=== PATIENT | female | born 1950 | race Hispanic/Latino ===

== ENCOUNTER 2019-07-29 17:52 | Emergency (ER) | payer MEDICARE ==
[2019-07-29 19:29] VITALS: BP 111/52
--- NOTE | 2019-07-29 20:57 | Event Note ---
ED Screening Note ED Screening Note: cough that began a week ago white sputum +SOB no fever PMHx none no allergies to meds +smoker This initial assessment/diagnostic orders/clinical plan/treatment(s) is/are subject to change based on patients health status, clinical progression and re- assessment by fellow clinical providers in the ED. Further treatment and workup at subsequent clinical providers discretion. Patient/guardian urged not to elope from the ED as their condition may be serious if not clinically assessed and managed. Initial orders include: CXR, neb tx
[2019-07-29] MEDS ORDERED: ALBUTEROL 2.5 MG/3 ML NEBU IH ONE (20:58)
[2019-07-29] MEDS ORDERED: IPRATROPIUM 0.02% NEBU 2.5 ML IH ONE (20:58)
--- NOTE | 2019-07-29 22:07 | XRay Report ---
CHEST PA AND LATERAL VIEWS INDICATION: productive cough, SOB. COMPARISON: None. FINDINGS: Support devices: None. Heart: Within normal limits. Lungs/Pleura: No acute pulmonary or pleural findings. IMPRESSION: 1. No significant abnormality. Signer Name: Dank Villanueva MD Signed: 07/29/2019 10:02 PM Workstation Name: [id number]
--- NOTE | 2019-07-29 22:45 | Emergency Department Report ---
ED Shortness of Breath HPI - General Chief Complaint: Dyspnea/Respdistress Stated Complaint: SOB/COUGHING Time Seen by Provider: 07/29/19 20:54 Source: patient Mode of arrival: Ambulatory Limitations: No Limitations - History of Present Illness Initial Comments: 68 y/o female cough that began a week ago white sputum +SOB no fever PMHx none no allergies to meds +smoker Complaint: shortness of breath, cough Onset/Timin -: days(s) (3 day of sob, ), week(s) (cough) Consistency: intermittent Improves With: bronchodilators ED Review of Systems ROS: Stated complaint: SOB/COUGHING Other details as noted in HPI ED Past Medical Hx - Social History Smoking Status: Current Every Day Smoker Substance Use Type: None ED Physical Exam - General Limitations: No Limitations ED Course Vital Signs 07/29/19 07/29/19 07/29/19 19:25 20:57 23:16 Temperature 98.3 F Pulse Rate 109 H 102 H Pulse Rate [ 84 Anterior Throughout] Respiratory 22 18 Rate Respiratory 20 Rate [Anterior Throughout] Blood Pressure 111/52 O2 Sat by Pulse 92 96 Oximetry ED Medical Decision Making - Radiology Data Radiology results: report reviewed Patient: FOZIA GARCÍA MR#: [id number] : 1950 Acct:[id number] Age/Sex: 68 / F ADM Date: 07/29/19 Loc: ED Attending Dr: Ordering Physician: SHIRA CRUZ Date of Service: 07/29/19 Procedure(s): XR chest routine 2V Accession Number(s): [id number] cc: SHIRA CRUZ Fluoro Time In Minutes: CHEST PA AND LATERAL VIEWS INDICATION: productive cough, SOB. COMPARISON: None. FINDINGS: Support devices: None. Heart: Within normal limits. Lungs/Pleura: No acute pulmonary or pleural findings. IMPRESSION: 1. No significant abnormality. Signer Name: Dank Villanueva MD Signed: 07/29/2019 10:02 PM Workstation Name: [id number] Transcribed By: DRE Dictated By: Dank Villanueva MD Electronically Authenticated By: Dank Villanueva MD Signed Date/Time: 07/29/192201 DD/ 01 TD/TT: - Medical Decision Making 68 y/o female cough that began a week ago white sputum +SOB no fever PMHx none no allergies to meds +smoker Patient receiving a breathing treatment. Chest x-rays negative for any acute findings or abnormalities. Nurse reported that patient left against medical l findings and son refused to allow patient to sign paperwork. Critical care attestation.: If time is entered above; I have spent that time in minutes in the direct care of this critically ill patient, excluding procedure time. ED Disposition Clinical Impression: Cough Disposition: ELOPED Is pt being admited?: No Does the pt Need Aspirin: No Condition: Undetermined Referrals: PRIMARY CARE, [Primary Care Provider] - 3-5 Days
== END 2019-07-29 22:58 | disposition left against medical advice (07) ==
LOC: ED 17:52
DX: R05 Cough (principal); R06.02 Shortness of breath
CPT/HCPCS: 71046; 94644; 99282

== ENCOUNTER 2019-10-03 15:39 | Inpatient (IN) | payer MEDICARE ==
[2019-10-03] MEDS ORDERED: SODIUM CHLORIDE 0.9% 1000 ML 1,000 ML ONE (16:04)
[2019-10-03] MEDS ORDERED: SODIUM CHLORIDE 0.9% 1000 ML 1,000 ML IV ONE (16:07)
[2019-10-03] MEDS ORDERED: SODIUM CHLORIDE 0.9% 1000 ML IV SOLN IV ONE (16:22)
--- NOTE | 2019-10-03 16:54 | XRay Report ---
CHEST 1 VIEW INDICATION / CLINICAL INFORMATION: sob. COMPARISON: 07/29/2019 FINDINGS: SUPPORT DEVICES: None. HEART / MEDIASTINUM: No significant abnormality. LUNGS / PLEURA: No significant pulmonary or pleural abnormality. No pneumothorax. ADDITIONAL FINDINGS: No significant additional findings. IMPRESSION: 1. No acute findings. Signer Name: Cali Barnes MD Signed: 10/03/2019 4:49 PM Workstation Name: [id number]
[2019-10-03 17:13] LABS: Basophils # (Auto) 0.1 K/mm3 (0.0-0.1); Eosinophils # (Auto) 0.2 K/mm3 (0.0-0.4); Eosinophils % (Auto) 1.4 % (0.0-4.3); Lymphocytes # (Auto) 2.1 K/mm3 (1.2-5.4); Lymphocytes % (Auto) 17.8 % (13.4-35.0); Mean Corpuscular HGB Conc 29 % (30-34); Monocytes # (Auto) 0.8 K/mm3 (0.0-0.8); Monocytes % (Auto) 6.8 % (0.0-7.3); Platelet Count 340 K/mm3 (140-440); Red Blood Count 3.18 M/mm3 (3.65-5.03)
[2019-10-03 17:16] LABS: Hemoglobin 5.5 gm/dl (10.1-14.3)
[2019-10-03 17:17] LABS: Hematocrit 18.9 % (30.3-42.9); Mean Corpuscular Volume 59 fl (79-97); Red Cell Distribution Width 21.7 % (13.2-15.2)
[2019-10-03] MEDS ORDERED: SODIUM CHLORIDE 0.9% 500 ML 500 ML IV ONE ×2 (17:19→20:16)
[2019-10-03 17:28] LABS: INR 1.05 (0.87-1.13)
[2019-10-03 17:29] LABS: Partial Thromboplastin Time 26.6 Sec. (24.2-36.6)
[2019-10-03 17:39] LABS: Alanine Aminotransferase 9 units/L (7-56); Albumin 3.6 g/dL (3.9-5); BUN/Creatinine Ratio 17; Blood Urea Nitrogen 15 mg/dL (7-17); Calcium 8.9 mg/dL (8.4-10.2); Hemolysis Index 0
[2019-10-03] MEDS ORDERED: KETOROLAC 30 MG/1 ML INJ IV ONE (17:58)
--- NOTE | 2019-10-03 18:27 | Emergency Department Report ---
- General Chief complaint: Headache Stated complaint: HEADACHE Time Seen by Provider: 10/03/19 16:07 Source: patient, EMS Mode of arrival: Stretcher Limitations: No Limitations - History of Present Illness Initial comments: 68-year-old female with a right-sided breast mass x7 to 8 years and diagnosis of pneumonia 1 month ago presents to the hospital complaining of generalized wea kness, shortness of breath, lightheadedness, headache, and right arm pain x1 day. Patient did have nausea and vomiting prior to arrival. Patient states she has a chronic cough that is unchanged without reports of fever, diarrhea, melena, or hematochezia. Patient denies recent travel, history of PE/DVT. Patient has had a right breast/chest wall mass for 7 to 8 years and has not followed up with a physician regarding this mass. Patient presents hypotensive. - Related Data Home Medications Medication Instructions Recorded Confirmed Last Taken No Known Home Medications [No 10/03/19 10/03/19 Unknown Reported Home Medications] Allergies Allergy/AdvReac Type Severity Reaction Status Date / Time No Known Allergies Allergy Verified 10/03/19 20:20 ED Review of Systems ROS: Stated complaint: HEADACHE Other details as noted in HPI Comment: All other systems reviewed and negative ED Past Medical Hx - Past Medical History Previous Medical History?: Yes Additional medical history: pneumonia - Surgical History Past Surgical History?: No - Social History Smoking Status: Current Every Day Smoker Substance Use Type: Alcohol - Medications Home Medications: Home Medications Medication Instructions Recorded Confirmed Last Taken Type No Known Home Medications [No 10/03/19 10/03/19 Unknown History Reported Home Medications] ED Physical Exam - General Limitations: No Limitations - Other Other exam information: General: No acute distress Head: Atraumatic Eyes: normal appearance, pale conjunctiva ENT: Moist mucous membranes Neck: Normal appearance, no midline tenderness Chest: Clear to auscultation bilaterally. She has a right chest wall mass with a fluctuant area to the right and superior to this chest wall mass. Patient no longer has a significant amount of right breast tissue. CV: Regular rate and rhythm Abdomen: Soft, normal bowel sounds, nontender, nondistended, no rebound or guarding Rectal: Guaiac negative brown stool Back: Normal inspection Extremity: Normal inspection, full range of motion, no swelling, warmth, or erythema to extremities full range of motion of right upper extremity, no calf tenderness or leg edema Neuro: Alert O x 3, no facial asymmetry, speech clear, no gross motor sensory deficit Psych: Appropriate behavior Skin: pale skin ED Course Vital Signs 10/03/19 10/03/19 10/03/19 15:55 16:10 16:16 Temperature 97.5 F L Pulse Rate 80 76 77 Respiratory 22 19 25 H Rate Blood Pressure 71/29 75/38 Blood Pressure [Left] O2 Sat by Pulse 95 100 97 Oximetry 10/03/19 10/03/19 10/03/19 16:30 16:45 17:00 Temperature Pulse Rate 78 77 79 Respiratory 18 20 20 Rate Blood Pressure 80/29 89/39 82/35 Blood Pressure [Left] O2 Sat by Pulse 98 95 99 Oximetry 10/03/19 10/03/19 10/03/19 17:15 17:30 17:45 Temperature Pulse Rate 84 81 87 Respiratory 17 19 27 H Rate Blood Pressure 92/40 91/36 98/38 Blood Pressure [Left] O2 Sat by Pulse 99 97 98 Oximetry 10/03/19 10/03/19 10/03/19 18:24 18:26 18:30 Temperature Pulse Rate 91 H 90 Respiratory 25 H 18 22 Rate Blood Pressure 135/54 Blood Pressure [Left] O2 Sat by Pulse 99 99 Oximetry 10/03/19 10/03/19 10/03/19 18:46 18:48 19:03 Temperature 97.7 F 97.4 F L Pulse Rate 95 H 93 H 93 H Respiratory 22 23 21 Rate Blood Pressure 135/54 135/54 143/65 Blood Pressure [Left] O2 Sat by Pulse 98 99 100 Oximetry 10/03/19 10/03/19 19:20 19:33 Temperature 97.6 F 97.6 F Pulse Rate 21 L 99 H Respiratory 21 21 Rate Blood Pressure 113/68 Blood Pressure 113/65 [Left] O2 Sat by Pulse 100 100 Oximetry ED Medical Decision Making - Lab Data Result diagrams: 10/03/19 16:57 10/03/19 16:57 Lab Results 10/03/19 10/03/19 10/03/19 Range/Units 16:55 16:57 16:57 WBC 12.0 H (4.5-11.0) K/mm3 RBC 3.18 L (3.65-5.03) M/mm3 Hgb 5.5 L* (10.1-14.3) gm/dl Hct 18.9 L* (30.3-42.9) % MCV 59 L (79-97) fl MCH 17 L (28-32) pg MCHC 29 L (30-34) % RDW 21.7 H (13.2-15.2) % Plt Count 340 (140-440) K/mm3 Lymph % (Auto) 17.8 (13.4-35.0) % Arthur % (Auto) 6.8 (0.0-7.3) % Eos % (Auto) 1.4 (0.0-4.3) % Baso % (Auto) 1.0 (0.0-1.8) % Lymph # 2.1 (1.2-5.4) K/mm3 Arthur # 0.8 (0.0-0.8) K/mm3 Eos # 0.2 (0.0-0.4) K/mm3 Baso # 0.1 (0.0-0.1) K/mm3 Seg Neutrophils % 73.0 H (40.0-70.0) % Seg Neutrophils # 8.8 H (1.8-7.7) K/mm3 PT 13.8 (12.2-14.9) Sec. INR 1.05 (0.87-1.13) APTT 26.6 (24.2-36.6) Sec. VBG pH (7.320-7.420) Sodium (137-145) mmol/L Potassium (3.6-5.0) mmol/L Chloride (98-107) mmol/L Carbon Dioxide (22-30) mmol/L Anion Gap mmol/L BUN (7-17) mg/dL Creatinine (0.7-1.2) mg/dL Estimated GFR ml/min BUN/Creatinine Ratio % Glucose (65-100) mg/dL Lactic Acid (0.7-2.0) mmol/L Calcium (8.4-10.2) mg/dL Total Bilirubin (0.1-1.2) mg/dL AST (5-40) units/L ALT (7-56) units/L Alkaline Phosphatase (35-129) units/L Troponin T (0.00-0.029) ng/mL Total Protein (6.3-8.2) g/dL Albumin (3.9-5) g/dL Albumin/Globulin Ratio % Blood Type O NEGATIVE Antibody Screen Negative Crossmatch See Detail 10/03/19 10/03/19 10/03/19 Range/Units 16:57 16:57 16:57 WBC (4.5-11.0) K/mm3 RBC (3.65-5.03) M/mm3 Hgb (10.1-14.3) gm/dl Hct (30.3-42.9) % MCV (79-97) fl MCH (28-32) pg MCHC (30-34) % RDW (13.2-15.2) % Plt Count (140-440) K/mm3 Lymph % (Auto) (13.4-35.0) % Arthur % (Auto) (0.0-7.3) % Eos % (Auto) (0.0-4.3) % Baso % (Auto) (0.0-1.8) % Lymph # (1.2-5.4) K/mm3 Arthur # (0.0-0.8) K/mm3 Eos # (0.0-0.4) K/mm3 Baso # (0.0-0.1) K/mm3 Seg Neutrophils % (40.0-70.0) % Seg Neutrophils # (1.8-7.7) K/mm3 PT (12.2-14.9) Sec. INR (0.87-1.13) APTT (24.2-36.6) Sec. VBG pH 7.307 L (7.320-7.420) Sodium 138 (137-145) mmol/L Potassium 5.0 (3.6-5.0) mmol/L Chloride 104.6 (98-107) mmol/L Carbon Dioxide 18 L (22-30) mmol/L Anion Gap 20 mmol/L BUN 15 (7-17) mg/dL Creatinine 0.9 (0.7-1.2) mg/dL Estimated GFR > 60 ml/min BUN/Creatinine Ratio 17 % Glucose 217 H (65-100) mg/dL Lactic Acid 2.80 H* (0.7-2.0) mmol/L Calcium 8.9 (8.4-10.2) mg/dL Total Bilirubin 0.20 (0.1-1.2) mg/dL AST 15 (5-40) units/L ALT 9 (7-56) units/L Alkaline Phosphatase 101 (35-129) units/L Troponin T < 0.010 (0.00-0.029) ng/mL Total Protein 6.2 L (6.3-8.2) g/dL Albumin 3.6 L (3.9-5) g/dL Albumin/Globulin Ratio 1.4 % Blood Type Antibody Screen Crossmatch - EKG Data -: EKG Interpreted by Mt EKG shows normal: sinus rhythm - Radiology Data Radiology results: report reviewed CHEST 1 VIEW INDICATION / CLINICAL INFORMATION: sob. COMPARISON: 07/29/2019 FINDINGS: SUPPORT DEVICES: None. HEART / MEDIASTINUM: No significant abnormality. LUNGS / PLEURA: No significant pulmonary or pleural abnormality. No pneumothorax. ADDITIONAL FINDINGS: No significant additional findings. IMPRESSION: 1. No acute findings. CT angio chest, CT abdomen pelvis w con INDICATION / CLINICAL INFORMATION: Shortness of breath, breast mass,. TECHNIQUE: Axial CT images were obtained after injection of IV contrast using CTA protocol. 3 plane MIP / 3D recons tructions were produced. All CT scans at this location are performed using CT dose reduction for ALARA by means of automated exposure control. COMPARISON: None available. CTA CHEST: The lungs contain no mass, infiltrate or pleural fluid. Basilar atelectasis is mild. No mediastinal mass or adenopathy. A spiculated mass at the right breast measures 5.3 x 2.7 cm (series 2, image 2:15). There is extension to the skin surface and associated retraction of breast. CT ABDOMEN: The parenchymal organs are unremarkable in appearance. Negative for abdominal mass, adenopathy or inflammation. The aorta contains moderate atherosclerotic calcification. The bowel is not dilated or thickened. CT PELVIS: Status post previous hysterectomy. The right ovary contains a probable small cyst measuring 2.4 cm. A high density lesion at the left ovary measuring 4.1 cm is likely a hemorrhagic cyst. Negative for pelvic mass or adenopathy. Evaluation of the bones demonstrates mixed lytic/sclerotic change at the L4 vertebral body and left iliac wing. IMPRESSION: 1. Infiltrating right breast carcinoma with bony metastatic disease to L4 and the left iliac wing. 2. Suspect small physiologic cyst right ovary and larger hemorrhagic cyst left ovary. CT head/brain wo con INDICATION / CLINICAL INFORMATION: 68 years Female; forrester, hypotension, breast mass. TECHNIQUE: Routine CT head without contrast. All CT scans at this location are performed using CT dose reduction for ALARA by means of automated exposure control. COMPARISON: None. FINDINGS: BRAIN / INTRACRANIAL CONTENTS: There appears be mild cerebral white matter disease most consistent with age-appropriate microvascular angiopathy at. There is also mild cerebral atrophy. The ventricular system is correspondingly appropriate in size and configuration. There is no clear CT evidence of acute intracranial hemorrhage or significant mass effect. ORBITS: No significant abnormality of visualized orbits. SINUSES / MASTOIDS: No significant abnormality the visualized paranasal sinuses or mastoid air cells. CRANIOCERVICAL JUNCTION: No significant abnormality. ADDITIONAL FINDINGS: None. IMPRESSION: 1. This mild age-appropriate microvascular angiopathy and cerebral atrophy without CT evidence of acute intracranial process. - Medical Decision Making Patient presented to the ER with generalized weakness, hypotension, and pale appearance. Labs revealed significant microcytic anemia. Cause likely secondary to possible iron deficiency as well as anemia of chronic disease. Patient has an infiltrating right breast mass which is likely infiltrating carcinoma. This has been ongoing for 7 to 8 years without treatment or medical care. Patient has signs of metastasis as per CT chest abdomen and pelvis. No signs of pulmonary embolus. CT head unremarkable. Patient's blood pressure im proved with IV fluids. 2 units of PRBCs were initiated in the ED. Patient provided Toradol for bone pain. Mild lactic acidosis noted which is likely secondary to significant anemia/hypoperfusion without any signs or source of infection at this time. Urine collection is pending at time of disposition to rule out UTI and complete septic work-up. Blood cultures are pending. UA reviewed no infection + inc specific gravity suggesting dehydration - Differential Diagnosis Sepsis, anemia, cancer, PE Critical Care Time: Yes Critical care time in (mins) excluding proc time.: 35 Critical care attestation.: If time is entered above; I have spent that time in minutes in the direct care of this critically ill patient, excluding procedure time. ED Disposition Clinical Impression: Symptomatic anemia, Breast cancer, right, Metastatic breast cancer, Hypo tension, Microcytic anemia, Bone pain Disposition: OP ADMIT IP TO THIS HOSP Is pt being admited?: Yes Condition: Stable Time of Disposition: 19:35 (Dr styles/hosp midlevel to admit)
--- NOTE | 2019-10-03 18:41 | Cat Scan Report ---
CT head/brain wo con INDICATION / CLINICAL INFORMATION: 68 years Female; forrester, hypotension, breast mass. TECHNIQUE: Routine CT head without contrast. All CT scans at this location are performed using CT dos e reduction for ALARA by means of automated exposure control. COMPARISON: None. FINDINGS: BRAIN / INTRACRANIAL CONTENTS: There appears be mild cerebral white matter disease most consistent wi th age-appropriate microvascular angiopathy at. There is also mild cerebral atrophy. The ventricular system is correspondingly appropriate in size and configuration. There is no clear CT evidence of acu te intracranial hemorrhage or significant mass effect. ORBITS: No significant abnormality of visualized orbits. SINUSES / MASTOIDS: No significant abnormality the visualized paranasal sinuses or mastoid air cells. CRANIOCERVICAL JUNCTION: No significant abnormality. ADDITIONAL FINDINGS: None. IMPRESSION: 1. This mild age-appropriate microvascular angiopathy and cerebral atrophy without CT evidence of acu te intracranial process. Signer Name: Cisco Vidales MD Signed: 10/03/2019 6:36 PM Workstation Name: [id number]
--- NOTE | 2019-10-03 19:13 | Cat Scan Report ---
CT angio chest, CT abdomen pelvis w con INDICATION / CLINICAL INFORMATION: Shortness of breath, breast mass,. TECHNIQUE: Axial CT images were obtained after injection of IV contrast using CTA protocol. 3 plane MIP / 3D rec onstructions were produced. All CT scans at this location are performed using CT dose reduction for A KEENA by means of automated exposure control. COMPARISON: None available. CTA CHEST: The lungs contain no mass, infiltrate or pleural fluid. Basilar atelectasis is mild. No mediastinal mass or adenopathy. A spiculated mass at the right breast measures 5.3 x 2.7 cm (serie s 2, image 2:15). There is extension to the skin surface and associated retraction of breast. CT ABDOMEN: The parenchymal organs are unremarkable in appearance. Negative for abdominal mass, adeno cecy or inflammation. The aorta contains moderate atherosclerotic calcification. The bowel is not dilated or thickened. CT PELVIS: Status post previous hysterectomy. The right ovary contains a probable small cyst measurin g 2.4 cm. A high density lesion at the left ovary measuring 4.1 cm is likely a hemorrhagic cyst. Nega tive for pelvic mass or adenopathy. Evaluation of the bones demonstrates mixed lytic/sclerotic change at the L4 vertebral body and left i liac wing. IMPRESSION: 1. Infiltrating right breast carcinoma with bony metastatic disease to L4 and the left iliac wing. 2. Suspect small physiologic cyst right ovary and larger hemorrhagic cyst left ovary. Signer Name: Stanislaw Brewster MD Signed: 10/03/2019 7:08 PM Workstation Name: [id number]
--- NOTE | 2019-10-03 20:03 | History and Physical Report ---
History of Present Illness Date of examination: 10/03/19 Date of admission: 10/03/2019 Chief complaint: Weakness History of present illness: Patient is a 68-year-old female with history of breast and uterine cancer who presents to ER with complaints of right arm pain, weakness and dizziness since yesterday. Patient reports starting her shift this morning and after waiting 2 tables her right arm pain remained constant with worsening symptoms throughout the day. She was transported to [facility] via EMS, seen and evaluated in the ED and found to have a hemoglobin of 5.6, hypotensive and right breast carcinoma with bony metastatic disease. Patient admitted for further evaluation. No reports of chest pain, palpitation, trauma, falls, vertigo, seizure activity, or recent ill contacts. Past History Past Medical History: other (As noted in HPI) Past Surgical History: hysterectomy Social history: smoking (x 50 years) Family history: cancer, hypertension Medications and Allergies Allergies Allergy/AdvReac Type Severity Reaction Status Date / Time No Known Allergies Allergy Verified 10/03/19 20:20 Home Medications Medication Instructions Recorded Confirmed Last Taken Type No Known Home Medications [No 10/03/19 10/03/19 Unknown History Reported Home Medications] Review of Systems All systems: negative Constitutional: fatigue, weakness Respiratory: cough Gastrointestinal: no vomiting, no diarrhea, no hematemesis, no coffee ground emesis Neurological: weakness, no change in mentation Exam - Physical Exam Narrative exam: - Physical Exam Narrative exam: General appearance: Present: No distress noted - EENT Eyes: Present: PERRL ENT: hearing intact, clear oral mucosa - Neck Neck: Present: supple, normal ROM - Respiratory Respiratory effort: normal Respiratory: bilateral: Clear to auscultation - Cardiovascular Heart rate:96 Heart Sounds: Present: S1 & S2. Absent: rub, click - Extremities Extremities: pulses symmetrical, No edema Peripheral Pulses: within normal limits - Abdominal General gastrointestinal: Present: , non-distended, normal bowel sounds genitourinary: Present: normal - Integumentary Integumentary: Present: clear, warm, dry - Musculoskeletal Musculoskeletal: strength equal bilaterally - Psychiatric Psychiatric: appropriate mood/affect, intact judgment & insight - Neurologic Neurologic: CNII-XII intact, moves all extremities - Constitutional Vitals: Temp Pulse Resp BP Pulse Ox 97.6 F 21 L 21 113/65 100 10/03/19 19:20 10/03/19 19:20 10/03/19 19:20 10/03/19 19:20 10/03/19 19:20 Results - Labs CBC & Chem 7: 10/04/19 04:44 10/04/19 04:44 Labs: Laboratory Last Values WBC 12.0 K/mm3 (4.5-11.0) H 10/03/19 16:57 RBC 3.18 M/mm3 (3.65-5.03) L 10/03/19 16:57 Hgb 5.5 gm/dl (10.1-14.3) L* 10/03/19 16:57 Hct 18.9 % (30.3-42.9) L* 10/03/19 16:57 MCV 59 fl (79-97) L 10/03/19 16:57 MCH 17 pg (28-32) L 10/03/19 16:57 MCHC 29 % (30-34) L 10/03/19 16:57 RDW 21.7 % (13.2-15.2) H 10/03/19 16:57 Plt Count 340 K/mm3 (140-440) 10/03/19 16:57 Lymph % (Auto) 17.8 % (13.4-35.0) 10/03/19 16:57 [place] % (Auto) 6.8 % (0.0-7.3) 10/03/19 16:57 Eos % (Auto) 1.4 % (0.0-4.3) 10/03/19 16:57 Baso % (Auto) 1.0 % (0.0-1.8) 10/03/19 16:57 Lymph # 2.1 K/mm3 (1.2-5.4) 10/03/19 16:57 [place] # 0.8 K/mm3 (0.0-0.8) 10/03/19 16:57 Eos # 0.2 K/mm3 (0.0-0.4) 10/03/19 16:57 Baso # 0.1 K/mm3 (0.0-0.1) 10/03/19 16:57 Seg Neutrophils % 73.0 % (40.0-70.0) H 10/03/19 16:57 Seg Neutrophils # 8.8 K/mm3 (1.8-7.7) H 10/03/19 16:57 PT 13.8 Sec. (12.2-14.9) 10/03/19 16:57 INR 1.05 (0.87-1.13) 10/03/19 16:57 APTT 26.6 Sec. (24.2-36.6) 10/03/19 16:57 VBG pH 7.307 (7.320-7.420) L 10/03/19 16:57 Sodium 138 mmol/L (137-145) 10/03/19 16:57 Potassium 5.0 mmol/L (3.6-5.0) 10/03/19 16:57 Chloride 104.6 mmol/L (98-107) 10/03/19 16:57 Carbon Dioxide 18 mmol/L (22-30) L 10/03/19 16:57 Anion Gap 20 mmol/L 10/03/19 16:57 BUN 15 mg/dL (7-17) 10/03/19 16:57 Creatinine 0.9 mg/dL (0.7-1.2) 10/03/19 16:57 Estimated GFR > 60 ml/min 10/03/19 16:57 BUN/Creatinine Ratio 17 % 10/03/19 16:57 Glucose 217 mg/dL (65-100) H 10/03/19 16:57 Lactic Acid 2.80 mmol/L (0.7-2.0) H* 10/03/19 16:57 Calcium 8.9 mg/dL (8.4-10.2) 10/03/19 16:57 Total Bilirubin 0.20 mg/dL (0.1-1.2) 10/03/19 16:57 AST 15 units/L (5-40) 10/03/19 16:57 ALT 9 units/L (7-56) 10/03/19 16:57 Alkaline Phosphatase 101 units/L (35-129) 10/03/19 16:57 Troponin T < 0.010 ng/mL (0.00-0.029) 10/03/19 16:57 Total Protein 6.2 g/dL (6.3-8.2) L 10/03/19 16:57 Albumin 3.6 g/dL (3.9-5) L 10/03/19 16:57 Albumin/Globulin Ratio 1.4 % 10/03/19 16:57 Blood Type O NEGATIVE 10/03/19 16:55 Antibody Screen Negative 10/03/19 16:55 Crossmatch See Detail 10/03/19 16:55 - Imaging and Cardiology EKG: report reviewed (Sinus rhythm) Chest x-ray: report reviewed CT scan - abdomen: report reviewed CT Scan - head: report reviewed Imaging and Cardiology: CHEST 1 VIEW INDICATION / CLINICAL INFORMATION: sob. COMPARISON: 07/29/2019 FINDINGS: SUPPORT DEVICES: None. HEART / MEDIASTINUM: No significant abnormality. LUNGS / PLEURA: No significant pulmonary or pleural abnormality. No pneumothorax. ADDITIONAL FINDINGS: No significant additional findings. IMPRESSION: 1. No acute findings. CT ABDOMEN: The parenchymal organs are unremarkable in appearance. Negative for abdominal mass, adenopathy or inflammation. The aorta contains moderate atherosclerotic calcification. The bowel is not dilated or thickened. CT PELVIS: Status post previous hysterectomy. The right ovary contains a probable small cyst measuring 2.4 cm. A high density lesion at the left ovary measuring 4.1 cm is likely a hemorrhagic cyst. Negative for pelvic mass or adenopathy. Evaluation of the bones demonstrates mixed lytic/sclerotic change at the L4 vertebral body and left iliac wing. IMPRESSION: 1. Infiltrating right breast carcinoma with bony metastatic disease to L4 and the left iliac wing. 2. Suspect small physiologic cyst right ovary and larger hemorrhagic cyst left ovary CT head/brain wo con INDICATION / CLINICAL INFORMATION: 68 years Female; forrester, hypotension, breast mass. TECHNIQUE: Routine CT head without contrast. All CT scans at this location are performed using CT dose reduction for ALARA by means of automated exposure control. COMPARISON: None. FINDINGS: BRAIN / INTRACRANIAL CONTENTS: There appears be mild cerebral white matter disease most consistent with age-appropriate microvascular angiopathy at. There is also mild cerebral atrophy. The ventricular system is correspondingly appropriate in size and configuration. There is no clear CT evidence of acute intracranial hemorrhage or significant mass effect. ORBITS: No significant abnormality of visualized orbits. SINUSES / MASTOIDS: No significant abnormality the visualized paranasal sinuses or mastoid air cells. CRANIOCERVICAL JUNCTION: No significant abnormality. ADDITIONAL FINDINGS: None. IMPRESSION: 1. This mild age-appropriate microvascular angiopathy and cerebral atrophy without CT evidence of acute intracranial process Assessment and Plan Assessment and plan: Symptomatic anemia -moderate anemia -Hb: 5.6g/dl -type and cross, transfuse 3 units of PRBC -Closely monitor H&H, - transfuse additional units as needed SIRS -CXR unremarkable -Tachycardic with heart rate 95 bpm -Respiratory rate >20 -Blood cultures pending -Follow up on labs Breast cancer -Ct Metastatic disease -consulted onc -Continue supportive care -Medical noncompliance Patient strongly advised complaint follow-up visits Verbalized understanding DVT prophylaxis -SCDs bilateral extremities Advance Directives: No VTE prophylaxis?: Mechanical Plan of care discussed with patient/family: Yes
[2019-10-03] MEDS ORDERED: ONDANSETRON 4 MG/2 ML INJ IV PRN (20:11)
[2019-10-03] MEDS ORDERED: ACETAMINOPHEN 325 MG TAB PO PRN (20:11)
[2019-10-03 20:33] LABS: Bacteria,Urine 1+ /HPF (Negative); Bilirubin,Urine NEG (Negative); Blood,Urine NEG (Negative); Color,Urine Straw (Yellow); Mucus,Urine FEW /HPF; Protein,Urine <15 mg/dL mg/dL (Negative); Urobilinogen,Urine < 2.0 mg/dL (<2.0)
[2019-10-03] MEDS: PANTOPRAZOLE 40 MG INJ IV SCH (21:52)
[2019-10-03] MEDS ORDERED: PANTOPRAZOLE 40 MG INJ IV ONE (21:52)
[2019-10-03] MEDS ORDERED: FAMOTIDINE 20 MG/2 ML INJ IV SCH (22:00)
[2019-10-03] MEDS ORDERED: SODIUM CHLORIDE 0.9% 500 ML 500 ML ONE (23:47)
[2019-10-04] MEDS ORDERED: diphenhydrAMINE 50 MG/ML VIAL IV ONE (03:23)
--- NOTE | 2019-10-04 03:55 | XRay Report ---
CHEST 1 VIEW INDICATION / CLINICAL INFORMATION: blood reaction, sob. COMPARISON: 10/03/2019 FINDINGS: SUPPORT DEVICES: None. HEART / MEDIASTINUM: No significant abnormality. LUNGS / PLEURA: There has been significant interval worsening with increasing interstitial markings w ith [place] B lines lines indicating developing pulmonary edema. There is alveolar consolidation at th e left base as well. No significant effusions. No pneumothorax. ADDITIONAL FINDINGS: No significant additional findings. IMPRESSION: 1 Worsening chest Signer Name: Casimiro Landry MD Signed: 10/04/2019 3:50 AM Workstation Name: [id number]
[2019-10-04 04:15] LABS: Bilirubin,Urine NEG (Negative); Blood,Urine SM (Negative); Color,Urine Yellow (Yellow); Mucus,Urine FEW /HPF; Protein,Urine <15 mg/dL mg/dL (Negative); Urobilinogen,Urine < 2.0 mg/dL (<2.0)
[2019-10-04] MEDS ORDERED: ALBUTEROL 2.5 MG/3 ML NEBU IH PRN (04:18)
[2019-10-04 05:22] LABS: Mean Corpuscular HGB Conc 28 % (30-34); Platelet Count 378 K/mm3 (140-440)
[2019-10-04 05:27] LABS: Hematocrit 28.8 % (30.3-42.9); Hemoglobin 8.2 gm/dl (10.1-14.3); Mean Corpuscular Volume 63 fl (79-97); Red Cell Distribution Width 23.2 % (13.2-15.2)
[2019-10-04 05:41] LABS: BUN/Creatinine Ratio 19; Blood Urea Nitrogen 13 mg/dL (7-17); Calcium 8.9 mg/dL (8.4-10.2); Hemolysis Index 2
[2019-10-04 06:38] LABS: Anisocytosis 2+; Hypochromasia 3+; Total Cells Counted 100
[2019-10-04 06:39] LABS: Burr Cells Rare
[2019-10-04 06:40] LABS: Platelet Estimate Consistent w Auto; Tear Drop Cells Rare
--- NOTE | 2019-10-04 07:30 | Hem/Onc Consultation ---
History of Present Illness - Reason for Consult Consult date: 10/04/19 breast cancer Requesting physician: JERI SWARTZ - History of Present Illness 68-year-old female with history of uterine cancer ( it appears long time ago she had uterine ca and now has rt breast mass not diagnosed but suspected as cancer) who presented to ER with complaints of right arm pain, weakness and dizziness since yesterday. Patient reports right arm pain remained constant with worsening symptoms throughout the day. She was transported to [facility] via EMS, seen and evaluated in the ED and In ED was found to have a hemoglobin of 5.6, hypotensive and right breast carcinoma with bony metastatic disease. Patient admitted for further evaluation. No reports of chest pain, palpitation, trauma, falls, vertigo, seizure activity, or recent ill contacts. CT ABDOMEN: The parenchymal organs are unremarkable in appearance. Negative for abdominal mass, adenopathy or inflammation. The aorta contains moderate atherosclerotic calcification. The bowel is not dilated or thickened. CT PELVIS: Status post previous hysterectomy. The right ovary contains a probable small cyst measuring 2.4 cm. A high density lesion at the left ovary measuring 4.1 cm is likely a hemorrhagic cyst. Negative for pelvic mass or adenopathy. Evaluation of the bones demonstrates mixed lytic/sclerotic change at the L4 vertebral body and left iliac wing. IMPRESSION: 1. Infiltrating right breast carcinoma with bony metastatic disease to L4 and the left iliac wing. 2. Suspect small physiologic cyst right ovary and larger hemorrhagic cyst left ovary CT head/brain wo con INDICATION / CLINICAL INFORMATION: 68 years Female; cano, hypotension, breast mass. TECHNIQUE: Routine CT head without contrast. All CT scans at this location are performed using CT dose reduction for ALARA by means of automated exposure control. COMPARISON: None. FINDINGS: BRAIN / INTRACRANIAL CONTENTS: There appears be mild cerebral white matter disease most consistent with age-appropriate microvascular angiopathy at. There is also mild cerebral atrophy. The ventricular system is correspondingly appropriate in size and configuration. There is no clear CT evidence of acute intracranial hemorrhage or significant mass effect. ORBITS: No significant abnormality of visualized orbits. SINUSES / MASTOIDS: No significant abnormality the visualized paranasal sinuses or mastoid air cells. CRANIOCERVICAL JUNCTION: No significant abnormality. ADDITIONAL FINDINGS: None. IMPRESSION: 1. This mild age-appropriate microvascular angiopathy and cerebral atrophy without CT evidence of acute intracranial process pt got PRBC Past History Past Medical History: cancer (uterine cancer in past - hysterctomy), other (As noted in HPI) Past Surgical History: hysterectomy Social history: smoking (x 50 years) Family history: cancer, hypertension Medications and Allergies Allergies Allergy/AdvReac Type Severity Reaction Status Date / Time No Known Allergies Allergy Verified 10/03/19 20:20 Home Medications Medication Instructions Recorded Confirmed Last Taken Type No Known Home Medications [No 10/03/19 10/03/19 Unknown History Reported Home Medications] Active Meds: Active Medications Acetaminophen (Tylenol) 650 mg PO Q4H PRN PRN Reason: Pain MILD(1-3)/Fever >100.5/CANO Albuterol (Proventil) 2.5 mg IH Q6HRT PRN PRN Reason: Shortness Of Breath Last Admin: 10/04/19 04:32 Dose: 2.5 mg Documented by: Famotidine (Pepcid) 20 mg IV BID [facility] Last Admin: 10/03/19 21:59 Dose: Not Given Documented by: Ondansetron HCl (Zofran) 4 mg IV Q8H PRN PRN Reason: Nausea And Vomiting Oxycodone/Acetaminophen (Percocet 5/325) 1 tab PO Q6H PRN PRN Reason: Pain, Moderate (4-6) Pantoprazole Sodium (Protonix) 40 mg IV BID [facility] Last Admin: 10/03/19 21:52 Dose: 40 mg Documented by: Sodium Chloride (Sodium Chloride Flush Syringe 10 Ml) 10 ml IV BID [facility] Last Admin: 10/03/19 21:59 Dose: 10 ml Documented by: Sodium Chloride (Sodium Chloride Flush Syringe 10 Ml) 10 ml IV PRN PRN PRN Reason: LINE FLUSH Review of Systems Constitutional: weakness Ears, nose, mouth and throat: no epistaxis Breasts: mass (rt breast) Cardiovascular: no dyspnea on exertion Respiratory: no cough Gastrointestinal: no abdominal pain Rectal: no bleeding Musculoskeletal: other (rt arm pain) Integumentary: lesions (rt breast skin changes) Neurological: other (has difficulty recollecting the name of dr ) Endocrine: no cold intolerance, no heat intolerance Hematologic/Lymphatic: no easy bruising Exam - Exam Narrative Exam: General appearance: Present: No distress noted - EENT Eyes: Present: PERRL ENT: hearing intact, clear oral mucosa - Neck Neck: Present: supple, normal ROM - Respiratory Respiratory effort: normal Respiratory: bilateral: Clear to auscultation - Cardiovascular Heart Sounds: Present: S1 & S2. Absent: rub, click - Extremities Extremities: pulses symmetrical, No edema Peripheral Pulses: within normal limits - Abdominal General gastrointestinal: Present: , non-distended, normal bowel sounds genitourinary: Present: normal - Integumentary Integumentary: rt breast lesions - Musculoskeletal Musculoskeletal: strength equal bilaterally - Psychiatric Psychiatric: appropriate mood/affect, intact judgment & insight - Neurologic Neurologic: CNII-XII intact, moves all extremities - Constitutional Vitals: Last Vital Signs Temp 97.5 F L 10/04/19 02:38 Pulse 120 H 10/04/19 04:32 Resp 20 10/04/19 04:32 BP 195/87 10/04/19 02:38 Pulse Ox 93 10/04/19 04:33 Results - Labs lab Results: Laboratory Results - last 24 hr 10/03/19 10/03/19 10/03/19 16:55 16:57 16:57 WBC 12.0 H RBC 3.18 L Hgb 5.5 L* Hct 18.9 L* MCV 59 L MCH 17 L MCHC 29 L RDW 21.7 H Plt Count 340 Lymph % (Auto) 17.8 [place] % (Auto) 6.8 Eos % (Auto) 1.4 Baso % (Auto) 1.0 Lymph # 2.1 [place] # 0.8 Eos # 0.2 Baso # 0.1 Add Manual Diff Total Counted Seg Neutrophils % 73.0 H Seg Neuts % (Manual) Band Neutrophils % Lymphocytes % (Manual) Reactive Lymphs % (Man) Monocytes % (Manual) Eosinophils % (Manual) Basophils % (Manual) Metamyelocytes % Myelocytes % Promyelocytes % Blast Cells % Nucleated RBC % Seg Neutrophils # 8.8 H Seg Neutrophils # Man Band Neutrophils # Lymphocytes # (Manual) Abs React Lymphs (Man) Monocytes # (Manual) Eosinophils # (Manual) Basophils # (Manual) Metamyelocytes # Myelocytes # Promyelocytes # Blast Cells # WBC Morphology Hypersegmented Neuts Hyposegmented Neuts Hypogranular Neuts Smudge Cells Toxic Granulation Toxic Vacuolation Dohle Bodies Pelger-Huet Anomaly Paula Rods Platelet Estimate Clumped Platelets Plt Clumps, EDTA Large Platelets Giant Platelets Platelet Satelliting Plt Morphology Comment RBC Morphology Dimorphic RBCs Polychromasia Hypochromasia Poikilocytosis Anisocytosis Microcytosis Macrocytosis Spherocytes Pappenheimer Bodies Sickle Cells Target Cells Tear Drop Cells Ovalocytes Helmet Cells [place] Pos Bodies [place] Rings Isauro Cells Bite Cells Crenated Cell Elliptocytes Acanthocytes (Spur) Rouleaux Hemoglobin C Crystals Schistocytes Malaria parasites Elvis Bodies Hem Pathologist Commnt PT 13.8 INR 1.05 APTT 26.6 VBG pH Sodium Potassium Chloride Carbon Dioxide Anion Gap BUN Creatinine Estimated GFR BUN/Creatinine Ratio Glucose Lactic Acid Calcium Total Bilirubin AST ALT Alkaline Phosphatase Troponin T Total Protein Albumin Albumin/Globulin Ratio Urine Color Urine Turbidity Urine pH Ur Specific [place] Urine Protein Urine Glucose (UA) Urine Ketones Urine Blood Urine Nitrite Urine Bilirubin Urine Urobilinogen Ur Leukocyte Esterase Urine WBC (Auto) Urine RBC (Auto) U Epithel Cells (Auto) Urine Bacteria (Auto) Urine Mucus Blood Type O NEGATIVE Antibody Screen Negative Crossmatch See Detail 10/03/19 10/03/19 10/03/19 16:57 16:57 16:57 WBC RBC Hgb Hct MCV MCH MCHC RDW Plt Count Lymph % (Auto) [place] % (Auto) Eos % (Auto) Baso % (Auto) Lymph # [place] # Eos # Baso # Add Manual Diff Total Counted Seg Neutrophils % Seg Neuts % (Manual) Band Neutrophils % Lymphocytes % (Manual) Reactive Lymphs % (Man) Monocytes % (Manual) Eosinophils % (Manual) Basophils % (Manual) Metamyelocytes % Myelocytes % Promyelocytes % Blast Cells % Nucleated RBC % Seg Neutrophils # Seg Neutrophils # Man Band Neutrophils # Lymphocytes # (Manual) Abs React Lymphs (Man) Monocytes # (Manual) Eosinophils # (Manual) Basophils # (Manual) Metamyelocytes # Myelocytes # Promyelocytes # Blast Cells # WBC Morphology Hypersegmented Neuts Hyposegmented Neuts Hypogranular Neuts Smudge Cells Toxic Granulation Toxic Vacuolation Dohle Bodies Pelger-Huet Anomaly Paula Rods Platelet Estimate Clumped Platelets Plt Clumps, EDTA Large Platelets Giant Platelets Platelet Satelliting Plt Morphology Comment RBC Morphology Dimorphic RBCs Polychromasia Hypochromasia Poikilocytosis Anisocytosis Microcytosis Macrocytosis Spherocytes Pappenheimer Bodies Sickle Cells Target Cells Tear Drop Cells Ovalocytes Helmet Cells [place] Pos Bodies [place] Isauro Cells Bite Cells Crenated Cell Elliptocytes Acanthocytes (Spur) Rouleaux Hemoglobin C Crystals Schistocytes Malaria parasites Elvis Bodies Hem Pathologist Commnt PT INR APTT VBG pH 7.307 L Sodium 138 Potassium 5.0 Chloride 104.6 Carbon Dioxide 18 L Anion Gap 20 BUN 15 Creatinine 0.9 Estimated GFR > 60 BUN/Creatinine Ratio 17 Glucose 217 H Lactic Acid 2.80 H* Calcium 8.9 Total Bilirubin 0.20 AST 15 ALT 9 Alkaline Phosphatase 101 Troponin T < 0.010 Total Protein 6.2 L Albumin 3.6 L Albumin/Globulin Ratio 1.4 Urine Color Urine Turbidity Urine pH Ur Specific [place] Urine Protein Urine Glucose (UA) Urine Ketones Urine Blood Urine Nitrite Urine Bilirubin Urine Urobilinogen Ur Leukocyte Esterase Urine WBC (Auto) Urine RBC (Auto) U Epithel Cells (Auto) Urine Bacteria (Auto) Urine Mucus Blood Type Antibody Screen Crossmatch 10/03/19 10/03/19 10/04/19 20:05 20:14 03:55 WBC RBC Hgb Hct MCV MCH MCHC RDW Plt Count Lymph % (Auto) [place] % (Auto) Eos % (Auto) Baso % (Auto) Lymph # [place] # Eos # Baso # Add Manual Diff Total Counted Seg Neutrophils % Seg Neuts % (Manual) Band Neutrophils % Lymphocytes % (Manual) Reactive Lymphs % (Man) Monocytes % (Manual) Eosinophils % (Manual) Basophils % (Manual) Metamyelocytes % Myelocytes % Promyelocytes % Blast Cells % Nucleated RBC % Seg Neutrophils # Seg Neutrophils # Man Band Neutrophils # Lymphocytes # (Manual) Abs React Lymphs (Man) Monocytes # (Manual) Eosinophils # (Manual) Basophils # (Manual) Metamyelocytes # Myelocytes # Promyelocytes # Blast Cells # WBC Morphology Hypersegmented Neuts Hyposegmented Neuts Hypogranular Neuts Smudge Cells Toxic Granulation Toxic Vacuolation Dohle Bodies Pelger-Huet Anomaly Paula Rods Platelet Estimate Clumped Platelets Plt Clumps, EDTA Large Platelets Giant Platelets Platelet Satelliting Plt Morphology Comment RBC Morphology Dimorphic RBCs Polychromasia Hypochromasia Poikilocytosis Anisocytosis Microcytosis Macrocytosis Spherocytes Pappenheimer Bodies Sickle Cells Target Cells Tear Drop Cells Ovalocytes Helmet Cells Nelson-[place] Nos Pos Bodies [place] Rings Isauro Cells Bite Cells Crenated Cell Elliptocytes Acanthocytes (Spur) Rouleaux Hemoglobin C Crystals Schistocytes Malaria parasites Elvis Bodies Hem Pathologist Commnt PT INR APTT VBG pH Sodium Potassium Chloride Carbon Dioxide Anion Gap BUN Creatinine Estimated GFR BUN/Creatinine Ratio Glucose Lactic Acid 2.10 H* Calcium Total Bilirubin AST ALT Alkaline Phosphatase Troponin T Total Protein Albumin Albumin/Globulin Ratio Urine Color Straw Yellow Urine Turbidity Clear Clear Urine pH 5.0 5.0 Ur Specific [place] 1.045 H 1.044 H Urine Protein <15 mg/dl <15 mg/dl Urine Glucose (UA) Neg Neg Urine Ketones Neg Neg Urine Blood Neg Sm Urine Nitrite Neg Neg Urine Bilirubin Neg Neg Urine Urobilinogen < 2.0 < 2.0 Ur Leukocyte Esterase Neg Neg Urine WBC (Auto) 1.0 1.0 Urine RBC (Auto) 2.0 3.0 U Epithel Cells (Auto) 1.0 1.0 Urine Bacteria (Auto) 1+ Urine Mucus Few Few Blood Type Antibody Screen Crossmatch 10/04/19 10/04/19 04:44 04:44 WBC 14.7 H RBC 4.60 Hgb 8.2 L Hct 28.8 L D MCV 63 L MCH 18 L MCHC 28 L RDW 23.2 H Plt Count 378 Lymph % (Auto) [place] % (Auto) Eos % (Auto) Baso % (Auto) Lymph # [place] # Eos # Baso # Add Manual Diff Complete Total Counted 100 Seg Neutrophils % Seg Neuts % (Manual) 71.0 H Band Neutrophils % 0 Lymphocytes % (Manual) 12.0 L Reactive Lymphs % (Man) 0 Monocytes % (Manual) 14.0 H Eosinophils % (Manual) 1.0 Basophils % (Manual) 2.0 H Metamyelocytes % 0 Myelocytes % 0 Promyelocytes % 0 Blast Cells % 0 Nucleated RBC % Not Reportable Seg Neutrophils # Seg Neutrophils # Man 10.4 H Band Neutrophils # 0.0 Lymphocytes # (Manual) 1.8 Abs React Lymphs (Man) 0.0 Monocytes # (Manual) 2.1 H Eosinophils # (Manual) 0.1 Basophils # (Manual) 0.3 H Metamyelocytes # 0.0 Myelocytes # 0.0 Promyelocytes # 0.0 Blast Cells # 0.0 WBC Morphology Not Reportable Hypersegmented Neuts Not Reportable Hyposegmented Neuts Not Reportable Hypogranular Neuts Not Reportable Smudge Cells Not Reportable Toxic Granulation Not Reportable Toxic Vacuolation Not Reportable Dohle Bodies Not Reportable Pelger-Huet Anomaly Not Reportable Paula Rods Not Reportable Platelet Estimate Consistent w auto Clumped Platelets Not Reportable Plt Clumps, EDTA Not Reportable Large Platelets Not Reportable Giant Platelets Not Reportable Platelet Satelliting Not Reportable Plt Morphology Comment Not Reportable RBC Morphology Not Reportable Dimorphic RBCs Not Reportable Polychromasia Not Reportable Hypochromasia 3+ Poikilocytosis Not Reportable Anisocytosis 2+ Microcytosis 2+ Macrocytosis Not Reportable Spherocytes Not Reportable Pappenheimer Bodies Not Reportable Sickle Cells Not Reportable Target Cells Not Reportable Tear Drop Cells Rare Ovalocytes Not Reportable Helmet Cells Not Reportable Nelson-[place] Nos Pos Bodies Not Reportable [place] Rings Not Reportable Isauro Cells Rare Bite Cells Not Reportable Crenated Cell Not Reportable Elliptocytes Rare Acanthocytes (Spur) Not Reportable Rouleaux Not Reportable Hemoglobin C Crystals Not Reportable Schistocytes Not Reportable Malaria parasites Not Reportable Elvis Bodies Not Reportable Hem Pathologist Commnt No PT INR APTT VBG pH Sodium 138 Potassium 4.3 Chloride 103.7 Carbon Dioxide 19 L Anion Gap 20 BUN 13 Creatinine 0.7 Estimated GFR > 60 BUN/Creatinine Ratio 19 Glucose 184 H Lactic Acid Calcium 8.9 Total Bilirubin AST ALT Alkaline Phosphatase Troponin T Total Protein Albumin Albumin/Globulin Ratio Urine Color Urine Turbidity Urine pH Ur Specific [place] Urine Protein Urine Glucose (UA) Urine Ketones Urine Blood Urine Nitrite Urine Bilirubin Urine Urobilinogen Ur Leukocyte Esterase Urine WBC (Auto) Urine RBC (Auto) U Epithel Cells (Auto) Urine Bacteria (Auto) Urine Mucus Blood Type Antibody Screen Crossmatch Assessment and Plan # Symptomatic anemia Hb: 5.6g/dl PRBC Def IX # rt Breast lesions not clear if she is known to have cancer or not # CT shows bone Metastatic disease - will await path Breast surgeon isabel # h/o uterine ca - in past - h/o hysterectomy # ovarian lesion - cyst ? - Patient Problems (1) Breast cancer, right Current Visit: Yes Status: Acute
[2019-10-04 08:16] LABS: Iron 85 ug/dL (37-170); Total Iron Binding Capacity 443 mcg/dL (250-450)
[2019-10-04] MEDS: PANTOPRAZOLE 40 MG INJ IV SCH ×2 (10:42→22:45)
--- NOTE | 2019-10-04 12:40 | Progress Note ---
Assessment and Plan Severe Symptomatic anemia - hollyley from acute on CD and Fe deficiency -Hb: 5.6g/dl on admission -type and crossed, transfused 2 units of PRBC -Closely monitor H&H, - transfuse additional units as needed SIRS, marcus reactive from severe anemia -CXR unremarkable -Tachycardic with heart rate 95 bpm -Respiratory rate >20 -Blood cultures negative -Follow up on labs, no source of infection so far Breast cancer - suspected -CT suggested Metastatic disease -consulted onc and breast surgeon for biopsy -Continue supportive care -Medical noncompliance Patient strongly advised complaint follow-up visits Verbalized understanding DVT prophylaxis -SCDs bilateral extremities Advance Directives: No VTE prophylaxis?: Mechanical Plan of care discussed with patient/family: Yes Disposition: possible d/c tomorrow if h/h stable and pending breast surgeon recommendation Subjective Date of service: 10/04/19 Interval history: Patient seen and examined c/o lightheadedness, tolerating diet denies breast pain now Objective - Constitutional Vitals: Vital Signs - 12hr 10/04/19 10/04/19 10/04/19 00:47 00:57 01:08 Temperature 98.3 F Pulse Rate 102 H Pulse Rate [ Anterior Throughout] Respiratory 20 Rate Respiratory Rate [Anterior Throughout] Blood Pressure 152/76 150/72 146/73 O2 Sat by Pulse 97 Oximetry 10/04/19 10/04/19 10/04/19 01:38 01:42 02:08 Temperature 98.3 F 98.7 F Pulse Rate 105 H 103 H 105 H Pulse Rate [ Anterior Throughout] Respiratory 20 20 Rate Respiratory Rate [Anterior Throughout] Blood Pressure 162/71 162/71 163/68 O2 Sat by Pulse 95 96 95 Oximetry 10/04/19 10/04/19 10/04/19 02:13 02:38 04:32 Temperature 97.5 F L Pulse Rate 106 H 112 H Pulse Rate [ 120 H Anterior Throughout] Respiratory 24 Rate Respiratory 20 Rate [Anterior Throughout] Blood Pressure 163/68 195/87 O2 Sat by Pulse 95 Oximetry 10/04/19 10/04/19 04:33 08:09 Temperature 97.6 F Pulse Rate 110 H Pulse Rate [ Anterior Throughout] Respiratory 20 Rate Respiratory Rate [Anterior Throughout] Blood Pressure 149/73 O2 Sat by Pulse 93 96 Oximetry General appearance: Present: no acute distress - EENT Eyes: PERRL, EOM intact ENT: hearing intact, clear oral mucosa Ears: bilateral: normal - Neck Neck: supple, normal ROM - Respiratory Respiratory effort: normal Respiratory: bilateral: CTA - Breasts Breasts: other (Left breast was negative for tenderness, skin changes or obvious palpable mass. Dense tissue noted. No nipple inversion or discharge. Right breast not visible. Right breast/chest wall mass noted with significant skin retraction and skin involvement. Mass appears to overly the right pectoral muscle/chest wall and is firm and non-mobile. No discharge noted. ) - Cardiovascular Rhythm: regular Heart Sounds: Present: S1 & S2. Absent: gallop, rub Extremities: pulses intact, No edema, normal color, Full ROM - Gastrointestinal General gastrointestinal: Present: soft, non-tender, non-distended, normal bowel sounds - Integumentary Integumentary: clear, warm, dry - Musculoskeletal Musculoskeletal: 1, strength equal bilaterally - Neurologic Neurologic: moves all extremities - Psychiatric Psychiatric: memory intact, appropriate mood/affect, intact judgment & insight - Labs CBC & Chem 7: 10/04/19 04:44 10/04/19 04:44 Labs: Abnormal lab results 10/03/19 10/03/19 10/03/19 Range/Units 16:55 16:57 16:57 WBC 12.0 H (4.5-11.0) K/mm3 RBC 3.18 L (3.65-5.03) M/mm3 Hgb 5.5 L* (10.1-14.3) gm/dl Hct 18.9 L* (30.3-42.9) % MCV 59 L (79-97) fl MCH 17 L (28-32) pg MCHC 29 L (30-34) % RDW 21.7 H (13.2-15.2) % Seg Neutrophils % 73.0 H (40.0-70.0) % Seg Neuts % (Manual) (40.0-70.0) % Lymphocytes % (Manual) (13.4-35.0) % Monocytes % (Manual) (0.0-7.3) % Basophils % (Manual) (0.0-1.8) % Seg Neutrophils # 8.8 H (1.8-7.7) K/mm3 Seg Neutrophils # Man (1.8-7.7) K/mm3 Monocytes # (Manual) (0.0-0.8) K/mm3 Basophils # (Manual) (0.0-0.1) K/mm3 VBG pH (7.320-7.420) Carbon Dioxide 18 L (22-30) mmol/L Glucose 217 H (65-100) mg/dL Lactic Acid (0.7-2.0) mmol/L Ferritin (13.0-400.0) ng/mL Total Protein 6.2 L (6.3-8.2) g/dL Albumin 3.6 L (3.9-5) g/dL Ur Specific Oliver (1.003-1.030) Crossmatch See Detail 10/03/19 10/03/19 10/03/19 Range/Units 16:57 16:57 20:05 WBC (4.5-11.0) K/mm3 RBC (3.65-5.03) M/mm3 Hgb (10.1-14.3) gm/dl Hct (30.3-42.9) % MCV (79-97) fl MCH (28-32) pg MCHC (30-34) % RDW (13.2-15.2) % Seg Neutrophils % (40.0-70.0) % Seg Neuts % (Manual) (40.0-70.0) % Lymphocytes % (Manual) (13.4-35.0) % Monocytes % (Manual) (0.0-7.3) % Basophils % (Manual) (0.0-1.8) % Seg Neutrophils # (1.8-7.7) K/mm3 Seg Neutrophils # Man (1.8-7.7) K/mm3 Monocytes # (Manual) (0.0-0.8) K/mm3 Basophils # (Manual) (0.0-0.1) K/mm3 VBG pH 7.307 L (7.320-7.420) Carbon Dioxide (22-30) mmol/L Glucose (65-100) mg/dL Lactic Acid 2.80 H* 2.10 H* (0.7-2.0) mmol/L Ferritin (13.0-400.0) ng/mL Total Protein (6.3-8.2) g/dL Albumin (3.9-5) g/dL Ur Specific Oliver (1.003-1.030) Crossmatch 10/03/19 10/04/19 10/04/19 Range/Units 20:14 03:55 04:44 WBC 14.7 H (4.5-11.0) K/mm3 RBC (3.65-5.03) M/mm3 Hgb 8.2 L (10.1-14.3) gm/dl Hct 28.8 L D (30.3-42.9) % MCV 63 L (79-97) fl MCH 18 L (28-32) pg MCHC 28 L (30-34) % RDW 23.2 H (13.2-15.2) % Seg Neutrophils % (40.0-70.0) % Seg Neuts % (Manual) 71.0 H (40.0-70.0) % Lymphocytes % (Manual) 12.0 L (13.4-35.0) % Monocytes % (Manual) 14.0 H (0.0-7.3) % Basophils % (Manual) 2.0 H (0.0-1.8) % Seg Neutrophils # (1.8-7.7) K/mm3 Seg Neutrophils # Man 10.4 H (1.8-7.7) K/mm3 Monocytes # (Manual) 2.1 H (0.0-0.8) K/mm3 Basophils # (Manual) 0.3 H (0.0-0.1) K/mm3 VBG pH (7.320-7.420) Carbon Dioxide (22-30) mmol/L Glucose (65-100) mg/dL Lactic Acid (0.7-2.0) mmol/L Ferritin (13.0-400.0) ng/mL Total Protein (6.3-8.2) g/dL Albumin (3.9-5) g/dL Ur Specific Oliver 1.045 H 1.044 H (1.003-1.030) Crossmatch 10/04/19 10/04/19 Range/Units 04:44 09:58 WBC (4.5-11.0) K/mm3 RBC (3.65-5.03) M/mm3 Hgb (10.1-14.3) gm/dl Hct (30.3-42.9) % MCV (79-97) fl MCH (28-32) pg MCHC (30-34) % RDW (13.2-15.2) % Seg Neutrophils % (40.0-70.0) % Seg Neuts % (Manual) (40.0-70.0) % Lymphocytes % (Manual) (13.4-35.0) % Monocytes % (Manual) (0.0-7.3) % Basophils % (Manual) (0.0-1.8) % Seg Neutrophils # (1.8-7.7) K/mm3 Seg Neutrophils # Man (1.8-7.7) K/mm3 Monocytes # (Manual) (0.0-0.8) K/mm3 Basophils # (Manual) (0.0-0.1) K/mm3 VBG pH (7.320-7.420) Carbon Dioxide 19 L (22-30) mmol/L Glucose 184 H (65-100) mg/dL Lactic Acid (0.7-2.0) mmol/L Ferritin 9.7 L (13.0-400.0) ng/mL Total Protein (6.3-8.2) g/dL Albumin (3.9-5) g/dL Ur Specific Oliver (1.003-1.030) Crossmatch
[2019-10-04] MEDS: oxyCODONE /ACETAMINOPHEN 5-325MG TAB PO PRN ×2 (12:42→22:44)
[2019-10-04] MEDS: FERROUS SULFATE 325 MG TAB PO SCH (12:46)
[2019-10-04] MEDS ORDERED: LIDOCAINE (1%) 10 MG/1 ML VIAL 20 ML MDV INFILTRATI ONE (13:14)
--- NOTE | 2019-10-04 15:55 | Consultation ---
History of Present Illness - Reason for Consult Consult date: 10/04/19 Right Breast Mass Requesting physician: RICKIE IGLESIAS - History of Present Illness Ms. Jami Moreno is a 68-year-old, post-menopausal, Turkish lady admitted via the ER with complaints of right arm pain, weakness and dizziness x 1 day. In the ER patient was noted to be hypotensive with a hemoglobin of 5.6. On evaluation patient was noted to have a mass on her right breast. Patient stat es she first noticed something in her right breast when her niece was about 3 or 4 years old, she is now 12 years old. Patient states about a year ago she started noticing her nipple retracting and some skin changes. She denies any weight loss or previous breast biopsies. Patient with personal history of uterine cancer for which she underwent a hysterectomy without oophorectomy around (at age 27). OBGYN history is significant for menarche at age 12. Patient is with [facility] at age 19. Admits to oral contraceptive use in her 20s. Zaira is a smoker (now smoking about 2 to 7 cigarettes per day. Family history is significant for her mother with "female parts cancer" in her 60s/70s and a maternal aunt also with "female parts cancer" at age 26. In the ER, patient underwent a CT Angio and CT Abd/pel. CT Angio showed no mediastinal mass or adenopathy. A spiculated mass at the right breast measures 5.3 x 2.7 cm. There is extension to the skin surface and associated retraction of breast. CT Abd/Pel showed mixed lytic/sclerotic change at the L4 vertebral body and left iliac wing. Impression: 1. Infiltrating right breast carcinoma with bony metastatic disease to L4 and the left iliac wing. 2. Suspect small physiologic cyst right ovary and larger hemorrhagic cyst left ovary. CT head/brain w/o contrast showed mild age-appropriate microvascular angiopathy and cerebral atrophy without CT evidence of acute intracranial process. Past History Past Medical History: cancer (uterine cancer in past - hysterctomy), other (As noted in HPI) Past Surgical History: hysterectomy (Without oophorectomy) Social history: smoking (x 50 years) Family history: cancer, hypertension Medications and Allergies Allergies Allergy/AdvReac Type Severity Reaction Status Date / Time No Known Allergies Allergy Verified 03/02/20 20:20 Home Medications Medication Instructions Recorded Confirmed Last Taken Type No Known Home Medications [No 10/03/19 10/03/19 Unknown History Reported Home Medications] Active Meds: Active Medications Acetaminophen (Tylenol) 650 mg PO Q4H PRN PRN Reason: Pain MILD(1-3)/Fever >100.5/CANO Albuterol (Proventil) 2.5 mg IH Q6HRT PRN PRN Reason: Shortness Of Breath Last Admin: 10/04/19 04:32 Dose: 2.5 mg Documented by: Ferrous Sulfate (Feosol) 325 mg PO QDAY [facility] Last Admin: 10/04/19 12:46 Dose: 325 mg Documented by: Ondansetron HCl (Zofran) 4 mg IV Q8H PRN PRN Reason: Nausea And Vomiting Oxycodone/Acetaminophen (Percocet 5/325) 1 tab PO Q6H PRN PRN Reason: Pain, Moderate (4-6) Last Admin: 10/04/19 12:42 Dose: 1 tab Documented by: Pantoprazole Sodium (Protonix) 40 mg IV BID [facility] Last Admin: 10/04/19 10:42 Dose: 40 mg Documented by: Sodium Chloride (Sodium Chloride Flush Syringe 10 Ml) 10 ml IV BID [facility] Last Admin: 10/04/19 10:42 Dose: 10 ml Documented by: Sodium Chloride (Sodium Chloride Flush Syringe 10 Ml) 10 ml IV PRN PRN PRN Reason: LINE FLUSH Review of Systems Constitutional: weakness, other (Pain) Breasts: change in shape, mass, skin changes, nipple abnormal Cardiovascular: chest pain, shortness of breath Respiratory: cough with sputum Menstruation: post hysterectomy Rectal: other (Deferred) Integumentary: deferred Exam - Physical Exam Narrative exam: Breast Exam: Patient was examined at bedside. Left breast was negative for tenderness, skin changes or obvious palpable mass. Dense tissue noted. No nipple inversion or discharge. Right breast not visible. Right breast/chest wall mass noted with significant skin retraction and skin involvement. Mass appears to overly the right pectoral muscle/chest wall and is firm and non-mobile. No discharge noted. - Constitutional Vitals: Temp Pulse Resp BP Pulse Ox 98.5 F 103 H 18 141/69 96 10/04/19 13:45 10/04/19 13:45 10/04/19 13:45 10/04/19 13:45 10/04/19 13:45 General appearance: Present: mild distress - EENT Eyes: Present: PERRL, EOM intact ENT: hearing intact - Neck Neck: Present: supple - Extremities Extremities: normal color - Abdominal General gastrointestinal: Present: deferred Female genitourinary: Present: deferred - Rectal Rectal Exam: deferred - Integumentary Integumentary: Present: warm, dry - Psychiatric Psychiatric: appropriate mood/affect, cooperative Results - Labs CBC & Chem 7: 10/04/19 04:44 10/04/19 04:44 Labs: Abnormal lab results 10/03/19 10/03/19 10/03/19 Range/Units 16:55 16:57 16:57 WBC 12.0 H (4.5-11.0) K/mm3 RBC 3.18 L (3.65-5.03) M/mm3 Hgb 5.5 L* (10.1-14.3) gm/dl Hct 18.9 L* (30.3-42.9) % MCV 59 L (79-97) fl MCH 17 L (28-32) pg MCHC 29 L (30-34) % RDW 21.7 H (13.2-15.2) % Seg Neutrophils % 73.0 H (40.0-70.0) % Seg Neuts % (Manual) (40.0-70.0) % Lymphocytes % (Manual) (13.4-35.0) % Monocytes % (Manual) (0.0-7.3) % Basophils % (Manual) (0.0-1.8) % Seg Neutrophils # 8.8 H (1.8-7.7) K/mm3 Seg Neutrophils # Man (1.8-7.7) K/mm3 Monocytes # (Manual) (0.0-0.8) K/mm3 Basophils # (Manual) (0.0-0.1) K/mm3 VBG pH (7.320-7.420) Carbon Dioxide 18 L (22-30) mmol/L Glucose 217 H (65-100) mg/dL Lactic Acid (0.7-2.0) mmol/L Ferritin (13.0-400.0) ng/mL Total Protein 6.2 L (6.3-8.2) g/dL Albumin 3.6 L (3.9-5) g/dL Ur Specific Porter (1.003-1.030) Crossmatch See Detail 10/03/19 10/03/19 10/03/19 Range/Units 16:57 16:57 20:05 WBC (4.5-11.0) K/mm3 RBC (3.65-5.03) M/mm3 Hgb (10.1-14.3) gm/dl Hct (30.3-42.9) % MCV (79-97) fl MCH (28-32) pg MCHC (30-34) % RDW (13.2-15.2) % Seg Neutrophils % (40.0-70.0) % Seg Neuts % (Manual) (40.0-70.0) % Lymphocytes % (Manual) (13.4-35.0) % Monocytes % (Manual) (0.0-7.3) % Basophils % (Manual) (0.0-1.8) % Seg Neutrophils # (1.8-7.7) K/mm3 Seg Neutrophils # Man (1.8-7.7) K/mm3 Monocytes # (Manual) (0.0-0.8) K/mm3 Basophils # (Manual) (0.0-0.1) K/mm3 VBG pH 7.307 L (7.320-7.420) Carbon Dioxide (22-30) mmol/L Glucose (65-100) mg/dL Lactic Acid 2.80 H* 2.10 H* (0.7-2.0) mmol/L Ferritin (13.0-400.0) ng/mL Total Protein (6.3-8.2) g/dL Albumin (3.9-5) g/dL Ur Specific Porter (1.003-1.030) Crossmatch 10/03/19 10/04/19 10/04/19 Range/Units 20:14 03:55 04:44 WBC 14.7 H (4.5-11.0) K/mm3 RBC (3.65-5.03) M/mm3 Hgb 8.2 L (10.1-14.3) gm/dl Hct 28.8 L D (30.3-42.9) % MCV 63 L (79-97) fl MCH 18 L (28-32) pg MCHC 28 L (30-34) % RDW 23.2 H (13.2-15.2) % Seg Neutrophils % (40.0-70.0) % Seg Neuts % (Manual) 71.0 H (40.0-70.0) % Lymphocytes % (Manual) 12.0 L (13.4-35.0) % Monocytes % (Manual) 14.0 H (0.0-7.3) % Basophils % (Manual) 2.0 H (0.0-1.8) % Seg Neutrophils # (1.8-7.7) K/mm3 Seg Neutrophils # Man 10.4 H (1.8-7.7) K/mm3 Monocytes # (Manual) 2.1 H (0.0-0.8) K/mm3 Basophils # (Manual) 0.3 H (0.0-0.1) K/mm3 VBG pH (7.320-7.420) Carbon Dioxide (22-30) mmol/L Glucose (65-100) mg/dL Lactic Acid (0.7-2.0) mmol/L Ferritin (13.0-400.0) ng/mL Total Protein (6.3-8.2) g/dL Albumin (3.9-5) g/dL Ur Specific Porter 1.045 H 1.044 H (1.003-1.030) Crossmatch 10/04/19 10/04/19 Range/Units 04:44 09:58 WBC (4.5-11.0) K/mm3 RBC (3.65-5.03) M/mm3 Hgb (10.1-14.3) gm/dl Hct (30.3-42.9) % MCV (79-97) fl MCH (28-32) pg MCHC (30-34) % RDW (13.2-15.2) % Seg Neutrophils % (40.0-70.0) % Seg Neuts % (Manual) (40.0-70.0) % Lymphocytes % (Manual) (13.4-35.0) % Monocytes % (Manual) (0.0-7.3) % Basophils % (Manual) (0.0-1.8) % Seg Neutrophils # (1.8-7.7) K/mm3 Seg Neutrophils # Man (1.8-7.7) K/mm3 Monocytes # (Manual) (0.0-0.8) K/mm3 Basophils # (Manual) (0.0-0.1) K/mm3 VBG pH (7.320-7.420) Carbon Dioxide 19 L (22-30) mmol/L Glucose 184 H (65-100) mg/dL Lactic Acid (0.7-2.0) mmol/L Ferritin 9.7 L (13.0-400.0) ng/mL Total Protein (6.3-8.2) g/dL Albumin (3.9-5) g/dL Ur Specific Porter (1.003-1.030) Crossmatch Assessment and Plan A/ 68-year-old lady with right breast mass likely cancer with metastasis to bone. P/ Discussed with the patient the findings and concern for cancer. Discussed the need to perform a biopsy to confirm diagnosis for further management. The risks, benefits, indications and benefits, including, but not limited to bleeding, infection, pain. Patient was given ample opportunity to ask questions which were answered. She verbalized understanding. An informed consent was obtained before a witness (Nurse Rosado). Biopsy was performed at bedside. The patient's right chest was prepped and draped in the usual sterile fashion. Local anesthesia of lidocaine was infiltrated at the site chosen for biopsy. Small stab incision was performed using an 11 blade. An Achieve biopsy gun was used to obtain specimens. 7 passes performed. Specimen was submitted for pathology evaluation. The wound was cleaned and hemostasis obtained. Steri-strips were placed over the biopsy site with gauze dressing to cover. A nodular area which was previously located and prepped was infiltrated with local anesthesia of lidocaine. A 4 mm punch biopsy instrument was used to obtain the specimen. Specimen was submitted for pathology evaluation. The wound was cleaned and dried and hemostasis achieved. Steri-Strips were placed. Gauze dressing placed over them. Patient tolerated the procedures well. Local wound care advised. We will follow-up pathology re naga. Thank you for allowing us to assist in the care of Ms. Moreno.
--- NOTE | 2019-10-05 07:14 | Hem/Onc Progress Note ---
Assessment and Plan # Symptomatic anemia Hb: 5.6g/dl PRBC Def IX # rt Breast lesion advanced -most of the breast is gone - pt mentioned nipple retraction started about 1 year ago # CT shows bone lesions - possible Metastatic disease # h/o uterine ca - in past - h/o hysterectomy uterine cancer for which she underwent a hysterectomy without oophorectomy around (at age 27) # ovarian lesion - cyst ? #Patient is a smoker (now smoking about 2 to 7 cigarettes per day) - adv to quit # CT Angio showed no mediastinal mass or adenopathy. A spiculated mass at the right breast measures 5.3 x 2.7 cm. There is extension to the skin surface and associated retraction of breast. CT Abd/Pel showed mixed lytic/sclerotic change at the L4 vertebral body and left iliac wing. Impression: 1. Infiltrating right breast carcinoma with bony metastatic disease to L4 and the left iliac wing. 2. Suspect small physiologic cyst right ovary and larger hemorrhagic cyst left ovary. pt had breast bx done low iron low normal b12 supplement same - iv iron - sq b12 and oral of same OP follow up an option - Patient Problems (1) Breast cancer, right Current Visit: Yes Status: Acute Subjective Date of service: 10/05/19 Principal diagnosis: rt breast mass - anemia Interval history: breast bx Objective - Exam Narrative Exam: General appearance: Present: No distress noted - EENT Eyes: Present: PERRL ENT: hearing intact, clear oral mucosa - Neck Neck: Present: supple, normal ROM - Respiratory Respiratory effort: normal Respiratory: bilateral: Clear to auscultation - Cardiovascular Heart Sounds: Present: S1 & S2. Absent: rub, click - Extremities Extremities: pulses symmetrical, No edema Peripheral Pulses: within normal limits - Abdominal General gastrointestinal: Present: , non-distended, normal bowel sounds genitourinary: Present: normal - Integumentary Integumentary: rt breast lesion+++ - Musculoskeletal Musculoskeletal: strength equal bilaterally - Psychiatric Psychiatric: appropriate mood/affect, intact judgment & insight - Neurologic Neurologic: CNII-XII intact, moves all extremities - Constitutional Vitals: Last Vital Signs Temp 98.7 F 10/04/19 19:11 Pulse 69 10/04/19 19:35 Resp 20 10/04/19 19:11 BP 138/67 10/04/19 19:11 Pulse Ox 93 10/04/19 22:33 - Labs Lab Results: Laboratory Results - last 24 hr 10/03/19 10/04/19 10/04/19 16:55 04:44 09:58 Iron 85 TIBC 443 Ferritin 9.7 L Vitamin B12 Folate Crossmatch See Detail 10/04/19 10/04/19 09:58 09:58 Iron TIBC Ferritin Vitamin B12 291.6 Folate 14.00 Crossmatch Medications & Allergies - Medications Allergies/Adverse Reactions: Allergies No Known Allergies Allergy (Verified 10/03/19 20:20) Home Medications: Home Medications Medication Instructions Recorded Confirmed Last Taken Type No Known Home Medications [No 10/03/19 10/03/19 Unknown History Reported Home Medications] Active Medications: Generic Name Dose Route Start Last Admin Trade Name Freq PRN Reason Stop Dose Admin Acetaminophen 650 mg 10/03/19 20:11 Tylenol PO Q4H PRN Pain MILD(1-3)/Fever >100.5/CANO Albuterol 2.5 mg 10/04/19 04:18 10/04/19 04:32 Proventil IH 2.5 mg Q6HRT PRN Administration Shortness Of Breath Cyanocobalamin 1,000 mcg 10/05/19 07:12 Vitamin B-12 SUB-Q 10/05/19 07:13 ONCE ONE Cyanocobalamin 1,000 mcg 10/05/19 10:00 Vitamin B-12 PO QDAY JAZMINE Ferrous Sulfate 325 mg 10/04/19 13:00 10/04/19 12:46 Feosol PO 325 mg QDAY JAZMINE Administration Ferric Sodium Gluconate 110 mls @ 100 mls/hr 10/05/19 07:12 Complex 125 mg/ Sodium IV 10/05/19 08:17 Chloride ONCE ONE Ondansetron HCl 4 mg 10/03/19 20:11 Zofran IV Q8H PRN Nausea And Vomiting Oxycodone/Acetaminophen 1 tab 10/03/19 20:11 10/04/19 22:44 Percocet 5/325 PO 1 tab Q6H PRN Administration Pain, Moderate (4-6) Pantoprazole Sodium 40 mg 10/03/19 22:00 10/04/19 22:45 Protonix IV 40 mg BID JAZMINE Administration Sodium Chloride 10 ml 10/03/19 22:00 10/04/19 10:42 Sodium Chloride Flush Syringe 10 Ml IV 10 ml BID JAZMINE Administration Sodium Chloride 10 ml 10/03/19 20:11 Sodium Chloride Flush Syringe 10 Ml IV PRN PRN LINE FLUSH
[2019-10-05] MEDS ORDERED: CYANOCOBALAMIN (VIT B-12) 1000 MCG/1 ML INJ SUB-Q NR (08:00)
[2019-10-05] MEDS ORDERED: SODIUM FERRIC GLUCON/SUCRO 125 MG in SODIUM CHLORIDE 0.9% 100 ML IV ONE (08:30)
[2019-10-05] MEDS: FERROUS SULFATE 325 MG TAB PO SCH (09:08)
[2019-10-05] MEDS: PANTOPRAZOLE 40 MG INJ IV SCH (09:08)
--- NOTE | 2019-10-05 12:15 | Discharge Summary ---
Providers - Providers Date of Admission: 10/04/19 15:00 Date of discharge: 10/05/19 Attending physician: KATE TIPTON 10/03/19 20:11 Consult to Physician [CONS] Routine Comment: Consulting Provider: RICKIE IGLESIAS Physician Instructions: Reason For Exam: cancer mets 10/04/19 07:55 Consult to Physician [CONS] Routine Comment: ALCON Consulting Provider: ANDREA STAUFFER Physician Instructions: CONSULT WAS CALLED TO /KAITLIN Reason For Exam: rt breast cancer 10/04/19 12:33 Physical Therapy Evaluation and Treat [CONS] Routine Comment: Reason For Exam: placement Primary care physician: CERTIFIED NURSE AIDE Hospitalization Condition: Stable Hospital course: Discharge diagnosis: Severe Symptomatic anemia - likley from acute on CD and Fe deficiency -Hb: 5.6g/dl on admission -type and crossed, transfused 2 units of PRBC -Closely monitor H&H, - transfuse additional units as needed SIRS, likley reactive from severe anemia -CXR unremarkable -Tachycardic with heart rate 95 bpm -Respiratory rate >20 -Blood cultures negative -no source of infection so far Breast cancer - likely stage 4, s/p biopsy -CT suggested Metastatic disease -consulted onc and breast surgeon for biopsy -Continue outpt f/u -Medical noncompliance Patient strongly advised complaint follow-up visits Verbalized understanding DVT prophylaxis -SCDs bilateral extremities Advance Directives: No VTE prophylaxis?: Mechanical Plan of care discussed with patient/family: Yes Disposition: d/c home with outpt f/u Physical exam General appearance: Present: no acute distress - EENT Eyes: PERRL, EOM intact ENT: hearing intact, clear oral mucosa Ears: bilateral: normal - Neck Neck: supple, normal ROM - Respiratory Respiratory effort: normal Respiratory: bilateral: CTA - Breasts Breasts: other (Left breast was negative for tenderness, skin changes or obvious palpable mass. Dense tissue noted. No nipple inversion or discharge. Right breast not visible. Right breast/chest wall mass noted with significant skin retraction and skin involvement. Mass appears to overly the right pectoral muscle/chest wall and is firm and non-mobile. No discharge noted. ) - Cardiovascular Rhythm: regular Heart Sounds: Present: S1 & S2. Absent: gallop, rub Extremities: pulses intact, No edema, normal color, Full ROM - Gastrointestinal General gastrointestinal: Present: soft, non-tender, non-distended, normal bowel sounds - Integumentary Integumentary: clear, warm, dry - Musculoskeletal Musculoskeletal: 1, strength equal bilaterally - Neurologic Neurologic: moves all extremities - Psychiatric Psychiatric: memory intact, appropriate mood/affect, intact judgment & insight Disposition: DC-01 TO HOME OR SELFCARE Time spent for discharge: 34 minutes Core Measure Documentation - Palliative Care Palliative Care/ Comfort Measures: Not Applicable - Core Measures Any of the following diagnoses?: none Exam - Constitutional Vitals: Temp Pulse Resp BP Pulse Ox 98.8 F 101 H 18 133/65 93 10/05/19 07:49 10/05/19 10:30 10/05/19 07:49 10/05/19 07:49 10/05/19 10:30 Plan Activity: advance as tolerated Weight Bearing Status: Weight Bear as Tolerated Diet: low fat Additional Instructions: f/u breast biopsy report with Dr iglesias in one week Follow up with: PRIMARY MD MARIELOS [Primary Care Provider] - 3-5 Days RICKIE IGLESIAS MD [Staff Physician] - 7 Days Prescriptions: Ferrous Sulfate [Feosol 325 MG tab] 325 mg PO QDAY #30 tablet oxyCODONE /ACETAMINOPHEN [Percocet 5/325 mg] 1 tab PO Q6H PRN #20 tablet PRN Reason: Pain, Moderate (4-6) Pantoprazole [Protonix TAB] 40 mg PO DAILY #30 tablet Cyanocobalamin [Vitamin B-12] 1,000 mcg PO QDAY #30 tablet
[2019-10-05 14:33] LABS: Hematocrit 26.7 % (30.3-42.9); Hemoglobin 7.9 gm/dl (10.1-14.3)
[2019-10-05 15:10] VITALS: BP 134/63
[2019-10-05] MEDS ORDERED: PANTOPRAZOLE 40 MG TAB PO SCH (22:00)
[2019-10-06] MEDS ORDERED: CYANOCOBALAMIN (VIT B-12) 1000 MCG TAB PO SCH (10:00)
== END 2019-10-05 16:20 | disposition home or self-care (01) | DRG 598 ==
LOC: ED 15:39 → 2B-ACE 20:11 → OBSVTOIN 10-04 15:00
PROVIDERS: ADMIT Internal Medicine; ATTEND Internal Medicine
PROC: 30233N1 Transfusion of Nonautologous Red Blood Cells into Peripheral Vein, Percutaneous Approach (ICD-10-PCS; 2019-10-03)
PROC: 0HB5XZX Excision of Chest Skin, External Approach, Diagnostic (ICD-10-PCS; principal; 2019-10-04)
DX: C50.911 Malignant neoplasm of unspecified site of right female breast (principal); R65.10 Systemic inflammatory response syndrome (SIRS) of non-infectious origin without acute organ dysfunction; C79.51 Secondary malignant neoplasm of bone; D63.8 Anemia in other chronic diseases classified elsewhere; F17.210 Nicotine dependence, cigarettes, uncomplicated; I95.9 Hypotension, unspecified; Z91.14 Patient's other noncompliance with medication regimen; Z90.710 Acquired absence of both cervix and uterus; Z71.6 Tobacco abuse counseling; Z80.9 Family history of malignant neoplasm, unspecified; Z82.49 Family history of ischemic heart disease and other diseases of the circulatory system; Z87.01 Personal history of pneumonia (recurrent); Z72.89 Other problems related to lifestyle
CPT/HCPCS: 36415; 70450; 71045; 71275; 74177; 80048; 80053; 81001; 82140; 82271; 82607; 82728; 82747; 82805; 83550; 84484; 85007; 85014; 85018; 85025; 85610; 85730; 86850; 86900; 86901; 86920; 87040; 88305; 93005; 93010; 94640; 94760; G0378; C9113; J1200; J1885; J2405; J2916; J3420; J7030; J7040; P9016; Q9967

== ENCOUNTER 2019-11-17 13:10 | Outpatient (CLI) | payer MEDICARE ==
--- NOTE | 2019-11-17 16:36 | Mammography Report ---
DIGITAL DIAGNOSTIC MAMMOGRAM WITH CAD, -- 11/17/2019 INDICATION: Patient has recent biopsy proven right breast cancer. Patient presents for evaluation of the left breast. Patient has no current complaints in the left breast. TECHNIQUE: Digital left mammographic imaging was performed. This examination was interpreted with the benefit of Computer-aided Detection analysis. COMPARISON: None available FINDINGS: Breast Density: There are scattered areas of fibroglandular density. There is a 5 mm nodular density seen in the 2:00 position of the left breast, anterior depth, which r equires further evaluation. IMPRESSION: 1. A nodular density in the left breast requires further evaluation with spot compression views and t argeted ultrasound if needed. Patient had to leave before this could be performed today. Follow up recommendation: Special View: Spot Category 0: Incomplete. Needs additional imaging evaluation and/or prior mammograms for comparison. A "normal" or negative report should not discourage follow up or biopsy of a clinically significant f inding. A written summary of these findings will be mailed to the patient. The patient will be entered into a mammography reporting system which will generate a reminder letter for the patient's next appointmen t at the appropriate interval. According to the [employer], yearly mammograms are recommended starting at age 40 and continuing as long as a woman is in good health. Breast MRI is recommended for women with an kiera roximately 20-25% or greater lifetime risk of breast cancer, including women with a strong family his tory of breast or ovarian cancer and women who have been treated for Hodgkin's disease. Signer Name: Emely Noel MD Signed: 11/17/2019 4:32 PM Workstation Name: [id number]
== END 2019-11-17 13:11 | disposition home or self-care (01) ==
LOC: SPVWC 13:10
PROVIDERS: ATTEND Surgery
DX: N63.21 Unspecified lump in the left breast, upper outer quadrant (principal); C50.911 Malignant neoplasm of unspecified site of right female breast

== ENCOUNTER 2019-11-30 15:28 | Outpatient (CLI) | payer MEDICARE ==
--- NOTE | 2019-11-30 16:36 | Mammography Report ---
LEFT DIGITAL DIAGNOSTIC MAMMOGRAM WITH CAD 11/30/2019 BILATERAL LIMITED BREAST ULTRASOUND INDICATION: Abnormal left mammogram. History of stage IV right breast cancer. TECHNIQUE: Digital left mammographic imaging was performed. Spot compression views were obtained. Th is examination was interpreted with the benefit of Computer-Aided Detection (CAD) analysis. COMPARISON: 11/17/2019 left mammogram FINDINGS: Breast Density: The breast is mostly fatty. MAMMOGRAPHIC FINDINGS: An irregular upper outer periareolar mass persists on spot compression views. Left breast demonstrated an irregular solid heterogeneous hypoechoic mass at 1:30 o'clock 2 cm from t he nipple measuring 8 x 4 x 4 mm. It correlates with the mammographic mass. Ultrasound of the left ax illa demonstrated no suspicious lymph nodes. Ultrasound of the right axilla demonstrated no suspiciou s lymph nodes. IMPRESSION: 1. A highly suspicious 8 mm left breast mass at 1:30 o'clock 2 cm from the nipple. Recommend ultrasou nd-guided needle biopsy. 2. Negative bilateral axillary ultrasound with no suspicious axillary lymph nodes. RADS category 6: Known Cancer A "normal" or negative report should not discourage follow up or biopsy of a clinically significant f inding. A written summary of these findings will be mailed to the patient. The patient will be entered into a mammography reporting system which will generate a reminder letter for the patient's next appointmen t at the appropriate interval. According to the [employer], yearly mammograms are recommended starting at age 40 and continuing as long as a woman is in good health. Breast MRI is recommended for women with an kiera roximately 20-25% or greater lifetime risk of breast cancer, including women with a strong family his tory of breast or ovarian cancer and women who have been treated for Hodgkin's disease. Signer Name: Bakari Ambriz MD Signed: 11/30/2019 4:31 PM Workstation Name: [id number]
== END 2019-11-30 15:29 | disposition home or self-care (01) ==
LOC: SPVWC 15:28
PROVIDERS: ATTEND Surgery
DX: N63.21 Unspecified lump in the left breast, upper outer quadrant (principal)

== ENCOUNTER 2019-12-21 09:39 | Outpatient (CLI) | payer MEDICARE ==
--- NOTE | 2019-12-21 11:40 | Ultrasound Report ---
ULTRASOUND-GUIDED NEEDLE CORE BIOPSY LEFT BREAST WITH CLIP PLACEMENT CLINICAL: Left breast mass at 1:30 o'clock 2 cm from the nipple. FINDINGS: The procedure was explained to the patient and informed consent was obtained. Ultrasound demonstrated the previously identified mass. I marked the breast with a felt tip marker and a timeout was called. The skin was prepped with Chloro -Prep and anesthetized with 1% lidocaine. Needle core biopsy was performed through small dermatotomy using ultrasound guidance, 2% lidocaine wi th epinephrine for deep anesthesia and a 14-gauge Achieve biopsy device. 4 cores were obtained and pl aced in formalin. A U-shaped clip was deployed within the mass. The patient tolerated the procedure well and there were no apparent complications. Hemostasis was ach ieved with minimal effort and a sterile dressing was applied. A post procedure mammogram demonstrated concordant clip deployment. She left the department in good c ondition and was given instructions for wound care and follow-up. IMPRESSION: Uncomplicated ultrasound guided needle core biopsy with clip placement left breast. Signer Name: Bakari Ambriz MD Signed: 12/21/2019 11:35 AM Workstation Name: [id number]
--- NOTE | 2019-12-21 12:05 | Mammography Report ---
DIGITAL DIAGNOSTIC MAMMOGRAM WITH CAD, 12/21/2019 INDICATION: POST CLIP LT TECHNIQUE: Digital left mammographic imaging was performed. This examination was interpreted with the benefit of Computer-aided Detection analysis. COMPARISON: 11/30/2019 FINDINGS: Breast Density: The breast is mostly fatty. A U-shaped biopsy clip correlates with the previous mammographic density. However a distinct mass is not identified on these images. IMPRESSION: Concordant clip deployment after ultrasound-guided biopsy. Follow up recommendation: No recall. Post biopsy imaging. A "normal" or negative report should not discourage follow up or biopsy of a clinically significant f inding. A written summary of these findings will be mailed to the patient. The patient will be entered into a mammography reporting system which will generate a reminder letter for the patient's next appointmen t at the appropriate interval. According to the [employer], yearly mammograms are recommended starting at age 40 and continuing as long as a woman is in good health. Breast MRI is recommended for women with an kiera roximately 20-25% or greater lifetime risk of breast cancer, including women with a strong family his tory of breast or ovarian cancer and women who have been treated for Hodgkin's disease. Signer Name: Bakari Ambriz MD Signed: 12/21/2019 12:00 PM Workstation Name: [id number]
== END 2019-12-21 09:40 | disposition home or self-care (01) ==
LOC: SPVWC 09:39
PROVIDERS: ATTEND Surgery
DX: N63.21 Unspecified lump in the left breast, upper outer quadrant (principal); C50.412 Malignant neoplasm of upper-outer quadrant of left female breast; F17.210 Nicotine dependence, cigarettes, uncomplicated; D64.9 Anemia, unspecified; D50.9 Iron deficiency anemia, unspecified; Z79.899 Other long term (current) drug therapy; Z90.710 Acquired absence of both cervix and uterus; Z91.81 History of falling; Z98.890 Other specified postprocedural states
CPT/HCPCS: 88305; 88341; 88342; 88361

== ENCOUNTER 2020-10-16 14:05 | Outpatient (CLI) | payer MEDICARE ==
--- NOTE | 2020-10-16 17:24 | Mammography Report ---
DIGITAL DIAGNOSTIC MAMMOGRAM WITH CAD, 10/16/2020 INDICATION: The patient has a known diagnosis of bilateral breast cancer with distant metastatic dise ase. She has had previous right mastectomy. She has a known biopsy-proven left breast cancer and is u ndergoing surveillance for this lesion. TECHNIQUE: Digital left mammographic imaging was performed. This examination was interpreted with the benefit of Computer-aided Detection analysis. COMPARISON: Diagnostic mammogram, 11/17/2019, 11/30/2019 and 12/21/2019. FINDINGS: Breast Density: There are scattered areas of fibroglandular density. The 7 mm nodular density at the 2:00 periareolar location with associated biopsy clip is unchanged in size. No new or suspicious left breast finding is visualized. IMPRESSION: Follow up recommendation: No recall. BI-RADS Category 6: Known Biopsy-Proven Malignancy. The patient's biopsy-proven subcentimeter left b reast mass remains stable. Continued follow-up can be as clinically indicated. A "normal" or negative report should not discourage follow up or biopsy of a clinically significant f inding. A written summary of these findings will be mailed to the patient. The patient will be entered into a mammography reporting system which will generate a reminder letter for the patient's next appointmen t at the appropriate interval. According to the [employer], yearly mammograms are recommended starting at age 40 and continuing as long as a woman is in good health. Breast MRI is recommended for women with an kiera roximately 20-25% or greater lifetime risk of breast cancer, including women with a strong family his tory of breast or ovarian cancer and women who have been treated for Hodgkin's disease. Signer Name: Hawa Elmore MD Signed: 10/16/2020 5:19 PM Workstation Name: [id number]
== END 2020-10-16 14:06 | disposition home or self-care (01) ==
LOC: SPVWC 14:05
PROVIDERS: ATTEND Surgery
DX: C50.412 Malignant neoplasm of upper-outer quadrant of left female breast (principal); C50.111 Malignant neoplasm of central portion of right female breast